=== PATIENT | female | born 1985 | race Caucasian/White ===

== ENCOUNTER → 2017-01-18 | Outpatient (CLI) | payer BC ==
--- NOTE | ~2017-01-18 | MR2 ---
[facility] A Service of [facility] RADIOLOGY TEXT RESULTS PATIENT: DERICK ROUSSEAU LOCATION: [facility] : 83 UNIT #: [id number] AGE: [address]: TIFFANIE STANFORD SEX: F ORDER DR: [id number] [address] [address] [id number] MR#: [id number] Acc #: [id number] NAME: DERICK ROUSSEAU : 1985 SEX: F STUDY DATE/TIME: 01/18/2017 8:49 UNIT: [facility] ROOM: STUDY DESCRIPTION: MR Abdomen WWo Cont Attending Physician: Generic Doctor Not In System Referring Physician: Generic Doctor Not In System Ordering Physician: Tiffanie Stanford Pa-C Primary Care Physician: Generic Doctor Not In System MRI CENTER REPORT This report is preliminary unless electronic signature is present. REVISED REPORT EXAM MRI abdomen with and without contrast INDICATIONS Followup renal cysts. Observation for renal mass. PROCEDURE Multiplanar multisequence MR imaging of the abdomen prior to and following 20 mL of MultiHance. COMPARISON 12/07/2013 FINDINGS Abdomen without contrast: Redemonstration of innumerable benign simple cysts scattered throughout both kidneys. There are also a few scattered, proteinaceous or hemorrhagic cysts. The liver is enlarged measuring 20 cm. Diffuse hepatic steatosis. The spleen, kidneys, pancreas, gallbladder, biliary system, bowel loops have normal signal. Abdomen with contrast: No enhancing renal mass. Two proteinaceous or hemorrhagic cysts in the lower pole of the left kidney are very similar to the prior 1 measuring 1.4 cm and the other 1.2 cm. The previously demonstrated enhancing lesion in the left hepatic lobe is not as well seen. There is some strandy enhancement in this region measuring 1.6 cm. This area of previously measured up to 2.9 cm. [facility] A Service [facility] RADIOLOGY TEXT RESULTS PATIENT: DERICK ROUSSEAU LOCATION: [facility] : 83 UNIT #: [id number] AGE: [address]: TIFFANIE STANFORD SEX: F ORDER DR: IMPRESSION 1. No enhancing renal mass. 2. Combination of multiple benign simple and proteinaceous or hemorrhagic cysts. 3. Previously demonstrated lesion left hepatic lobe is not as well seen. It does appear to be smaller than on the previous study and again a benign process is favored. 4. Hepatomegaly with steatosis. *ORDERING DOCTOR ADDED* Dictated by... Chase Amaya M.D. THIS IS AN ELECTRONICALLY VERIFIED REPORT Chase Amaya M.D. at 01/21/2017 7:14 AM IMER/natasha TD: 01/19/2017 13:50 JOB #: [id number] CC: [email or web address]/[email or web address] Please Delete MRI CENTER REPORT Page 1 of 1
== END | disposition home or self-care (01) ==
LOC: SMRI 08:19
DX: N28.1 Cyst of kidney, acquired (principal); K76.0 Fatty (change of) liver, not elsewhere classified
CPT/HCPCS: 74183; A9581